=== PATIENT | female | born 1950 | race Caucasian/White ===

== ENCOUNTER → 2016-06-09 | Outpatient (CLI) | payer MEDICARE, OTHER | LOC: GMAB 10:08 | PROVIDERS: ATTEND Family Medicine | DX: E03.9 Hypothyroidism, unspecified (principal) ==

== ENCOUNTER → 2016-11-26 | Outpatient (CLI) | payer MEDICARE, OTHER | LOC: GMAB 13:11 | PROVIDERS: ATTEND Family Medicine | DX: R30.0 Dysuria (principal); E87.6 Hypokalemia ==

== ENCOUNTER → 2017-02-17 | Outpatient (CLI) | payer MEDICARE, OTHER ==
--- NOTE | 2017-02-19 17:18 | CT ---
EXAM DESCRIPTION: CTA Chest CLINICAL HISTORY: PE COMPARISON: None. TECHNIQUE: Axial CT images of the chest were acquired after the administration of intravenous contrast. Coronal and sagittal reconstructions were obtained. This exam was performed according to our departmental dose-optimization program which includes use of Automated Exposure Control, adjustment of the mA and/or kV according to patient size and/or use of iterative reconstruction technique. FINDINGS: Neck base: Unremarkable. Mediastinum: Unremarkable Lymph Nodes: No lymphadenopathy. Heart and pericardium: Normal heart size. No pericardial effusion. Aorta: No aneurysm or dissection Pulmonary Artery: No pulmonary embolism Central Airways: Patent. Pleura: No pneumothorax or pleural effusion. Lungs: Small subpleural nodules are scattered throughout the right upper lobe and right middle lobe, for example right middle lobe image 93 series 301 and right upper lobe image 54. 4 mm subsolid nodule left upper lobe image 35. Small subpleural pulmonary nodules within the left upper lobe, for example image 24. Upper abdomen: Unremarkable. Bones and soft tissues: No acute osseous or soft tissue abnormalities. IMPRESSION: No pulmonary embolism. Bilateral pulmonary nodules measuring less than 6 mm. Per Fleischner guidelines, if low risk no further follow-up is required. If high risk consider follow-up chest CT in 12 months. Electronically signed by: Nabeel Umana MD 02/19/2017 5:17 PM CDT
== END ==
LOC: FT 08:00
PROVIDERS: ATTEND Internal Medicine Interventional Cardiology
DX: R06.09 Other forms of dyspnea (principal); R91.1 Solitary pulmonary nodule

== ENCOUNTER → 2017-04-29 | Outpatient (CLI) | payer MEDICARE, OTHER | LOC: GMAB 12:49 | PROVIDERS: ATTEND Family Medicine | DX: R30.0 Dysuria (principal) ==

== ENCOUNTER → 2017-08-17 | Outpatient (CLI) | payer MEDICARE, OTHER | END | disposition home or self-care (01) | LOC: GMAB 10:17 | PROVIDERS: ATTEND Family Medicine | DX: E03.9 Hypothyroidism, unspecified (principal) ==

== ENCOUNTER → 2017-11-24 | Outpatient (CLI) | payer MEDICARE, OTHER | LOC: GMAJS 15:04 | PROVIDERS: ATTEND Physician Assistant | DX: R30.0 Dysuria (principal) ==

== ENCOUNTER → 2018-08-31 | Outpatient (CLI) | payer MEDICARE, OTHER ==
[~2018-08-31] MED LIST: ALBUTEROL SULFATE 2.5 MG/3 ML VIAL NEB ONE
== END ==
LOC: RESP 10:25
PROVIDERS: ATTEND Family Medicine
DX: R06.02 Shortness of breath (principal)
CPT/HCPCS: 94060; J7611

== ENCOUNTER 2018-10-12 23:05 | Emergency (ER) | payer MEDICARE, OTHER ==
--- NOTE | 2018-10-12 23:26 | ED.PDOC ---
History of Present Illness - General Chief Complaint: Cardiovascular Problem Stated Complaint: burnig chest, dizzy Time Seen by Provider: 10/12/18 23:22 Source: patient, family Exam Limitations: no limitations - History of Present Illness Initial Comments: patient comes in today for sudden onset of burning chest pain. Patient was about to go to bed and was walking to bed when suddenly she became diaphoretic, had a severe episode of dizziness where the entire room was spinning, and suffered severe burning chest pain substernal area. Patient states only lasted for a couple minutes and has since resolved. Patient currently has no dizziness but when her daughter took her blood pressure was extremely elevated. Patient with past medical history significant for hypothyroidism and hypertension. Patient's never had any heart problems or suffered any angina. She's never had episodes of vertigo in the past. She's had no loss of consciousness, altered LOC, slurring of words, or change sensation to her upper or lower extremities. Prior to tonight she was in her normal usual health and has had no fever, chills, cough or cold symptoms. Timing/Duration: 1/2 hour, resolved prior to arrival Severity/Quality: severe, burning Location: substernal Chest Pain Radiation: no radiation Activities at Onset: rest Prior Chest Pain/Cardiac Workup: no prior chest pain, no prior cardiac workup Improving Factors: other - resolved spontaneously Worsening Factors: nothing Nitro Today/Relief: no nitro taken today Aspirin Treatment Today: 81 mg x 1, provided at home Associated Symptoms: dizziness, nausea/vomiting, weakness Allergies/Adverse Reactions: Allergies Penicillins Allergy (Verified 10/12/18 23:20) Home Medications: Ambulatory Orders Amlodipine Besylate 5 mg PO DAILY 10/12/18 Aspirin [Aspirin Childrens] 81 mg PO DAILY 10/12/18 Denosumab [Prolia] 60 mg SC 10/12/18 Hydrochlorothiazide 25 mg PO PRN 10/12/18 Levothyroxine Sodium 75 mcg PO DAILY 10/12/18 Losartan Potassium 100 mg PO DAILY 10/12/18 Magnesium 250 mg PO DAILY 10/12/18 Multiple Vitamins W/ Minerals [Hair/Skin/Nails] 2 tab PO DAILY 10/12/18 Multiple Vitamins W/ Minerals [Osteoprime Plus/Calcium &] 4 tab PO DAILY 10/12/18 Potassium Chloride [K-Tab] 10 meq PO TID 10/12/18 Sertraline HCl 25 mg PO DAILY 10/12/18 Review of Systems - Review of Systems Constitutional: States: diaphoresis, weakness EENTM: States: no symptoms reported. Denies: blurred vision, double vision, ear discharge, nose congestion, throat pain Respiratory: States: no symptoms reported. Denies: cough, short of breath, wheezing Cardiology: States: see HPI, chest pain Gastrointestinal/Abdominal: States: no symptoms reported. Denies: abdominal pain, diarrhea, nausea, vomiting Neurological: States: see HPI Family Medical History - Family History Mother Family History: Unknown Living Status: Unknown Physical Exam - Physical Exam General Appearance: Alert, Comfortable, No apparent distress Eyes, Ears, Nose, Throat Exam: PERRL/EOMI, normal ENT inspection, TMs normal, pharynx normal Neck: non-tender, full range of motion, supple, normal inspection Respiratory: chest non-tender, lungs clear, normal breath sounds, no respiratory distress Cardiovascular/Chest: normal peripheral pulses, regular rate, rhythm, no edema, no gallop, no JVD, no murmur Peripheral Pulses: radial,right: 2+, radial,left: 2+ Gastrointestinal/Abdominal: normal bowel sounds, non tender, soft Neurologic: parts and service manager II-XII nml as tested, no motor/sensory deficits, alert, oriented x 3, other - no deficit, no drift, normal motor, normal speech Skin Exam: normal color Progress - Results/Orders Results/Orders: 10/12/18 23:30 EKG STAT 10/13/18 01:50 CARDIAC ENZYME GROUP Stat 10/13/18 02:00 EKG STAT Laboratory Results WBC 11.5 K/mm3 (4.8-10.8) H 10/12/18 23:00 RBC 4.91 M/mm3 (4.20-5.40) 10/12/18 23:00 Hgb 12.5 gm/dL (12.0-16.0) 10/12/18 23:00 Hct 39.0 % (36.0-47.0) 10/12/18 23:00 MCV 79.4 fl (81.0-99.0) L 10/12/18 23:00 MCH 25.5 pg (27.0-31.0) L 10/12/18 23:00 MCHC 32.1 g/dL (33.0-37.0) L 10/12/18 23:00 RDW 15.1 % (11.5-14.5) H 10/12/18 23:00 Plt Count 284 K/mm3 (130-400) 10/12/18 23:00 MPV 8.8 fl (7.40-10.4) 10/12/18 23:00 Absolute Neuts (auto) 4.60 K/uL (1.8-6.8) 10/12/18 23:00 Absolute Lymphs (auto) 5.40 K/uL (1.0-3.4) H 10/12/18 23:00 Absolute Monos (auto) 1.00 K/uL (0.2-0.8) H 10/12/18 23:00 Absolute Eos (auto) 0.40 K/uL (0.0-0.4) 10/12/18 23:00 Absolute Basos (auto) 0.10 K/uL (0.0-0.1) 10/12/18 23:00 Neutrophils % 39.9 % (42.0-78.0) L 10/12/18 23:00 Lymphocytes % 46.5 % (20.0-50.0) 10/12/18 23:00 Monocytes % 8.7 % (2.0-9.0) 10/12/18 23:00 Eosinophils % 3.8 % (1.0-5.0) 10/12/18 23:00 Basophils % 1.1 % (0.0-2.0) 10/12/18 23:00 Sodium 135 mmol/L (135-145) 10/12/18 23:00 Potassium 3.2 mmol/L (3.6-5.0) L 10/12/18 23:00 Chloride 102 mmol/L (101-111) 10/12/18 23:00 Carbon Dioxide 23 mmol/L (21-31) 10/12/18 23:00 Anion Gap 13.2 (12-18) 10/12/18 23:00 BUN 29 mg/dL (7-18) H 10/12/18 23:00 Creatinine 0.99 mg/dL (0.6-1.3) 10/12/18 23:00 BUN/Creatinine Ratio 29.3 (10-20) H 10/12/18 23:00 Random Glucose 103 mg/dL (70-105) 10/12/18 23:00 Serum Osmolality 276.2 mOsm/L (275-295) 10/12/18 23:00 Calcium 9.8 mg/dL (8.4-10.2) 10/12/18 23:00 Total Bilirubin < 0.2 mg/dL (0.2-1.0) L 10/12/18 23:00 AST 23 IU/L (10-42) 10/12/18 23:00 ALT 15 IU/L (10-60) 10/12/18 23:00 Alkaline Phosphatase 67 IU/L (42-121) 10/12/18 23:00 Creatine Kinase 49 IU/L (26-140) 10/13/18 01:50 CK-MB (CK-2) 2.2 ng/mL (0.0-4.4) 10/12/18 23:00 CK-MB (CK-2) % Not Reportable 10/12/18 23:00 Troponin I < 0.02 ng/mL (0.01-0.05) 10/13/18 01:50 Serum Total Protein 7.1 gm/dL (6.4-8.2) 10/12/18 23:00 Albumin 3.6 g/dl (3.2-5.5) 10/12/18 23:00 Globulin 3.5 gm/dL (2.3-3.5) 10/12/18 23:00 Albumin/Globulin Ratio 1.0 (1.1-1.9) L 10/12/18 23:00 Amylase 55 U/L (28-100) 10/12/18 23:00 Lipase 39 U/L (22-51) 10/12/18 23:00 repeat EKG show no acute changes - EKG/XRAY/CT EKG: Sinus, no ST T wave changes Comments: HR 65, normal ECG, normal axis Departure - Departure Clinical Impression: Vertigo Disposition: Discharge to Home or Self Care Condition: Fair Departure Forms: ED Discharge - Pt. Copy, Patient Portal Self Enrollment Instructions: DI for Chest Pain Referrals: Mert Ferguson MD [Family Provider] - 1-2 Weeks Home Medications: Ambulatory Orders Amlodipine Besylate 5 mg PO DAILY 10/12/18 Aspirin [Aspirin Childrens] 81 mg PO DAILY 10/12/18 Denosumab [Prolia] 60 mg SC 10/12/18 Hydrochlorothiazide 25 mg PO PRN 10/12/18 Levothyroxine Sodium 75 mcg PO DAILY 10/12/18 Losartan Potassium 100 mg PO DAILY 10/12/18 Magnesium 250 mg PO DAILY 10/12/18 Multiple Vitamins W/ Minerals [Hair/Skin/Nails] 2 tab PO DAILY 10/12/18 Multiple Vitamins W/ Minerals [Osteoprime Plus/Calcium &] 4 tab PO DAILY 10/12/18 Potassium Chloride [K-Tab] 10 meq PO TID 10/12/18 Sertraline HCl 25 mg PO DAILY 10/12/18 Additional Instructions: return to ER for chest pain, intractable emesis or vertigo. Follow up with PCP in 3-4 days
[2018-10-12 23:36] VITALS: TEMP 97.1; O2SAT 98
[2018-10-13] MEDS: MECLIZINE HCL 12.5 MG TAB PO ONE (00:01)
[2018-10-13 02:27] VITALS: BP 141/71
== END 2018-10-13 02:27 | disposition home or self-care (01) ==
LOC: ER 23:05
DX: R42 Dizziness and giddiness (principal); R07.2 Precordial pain; E03.9 Hypothyroidism, unspecified; I10 Essential (primary) hypertension; Z79.82 Long term (current) use of aspirin; Z79.899 Other long term (current) drug therapy; Z88.0 Allergy status to penicillin

== ENCOUNTER → 2019-03-05 | Outpatient (CLI) | payer MEDICARE, OTHER | LOC: GMAE 11:46 | PROVIDERS: ATTEND Family Medicine | DX: E03.9 Hypothyroidism, unspecified (principal); E78.2 Mixed hyperlipidemia ==

== ENCOUNTER → 2019-10-15 | Outpatient (CLI) | payer MEDICARE, OTHER | LOC: GMAE 14:23 | PROVIDERS: ATTEND Family Medicine | DX: R19.7 Diarrhea, unspecified (principal); E03.9 Hypothyroidism, unspecified; I10 Essential (primary) hypertension ==

== ENCOUNTER → 2019-11-23 | Outpatient (CLI) | payer MEDICARE, OTHER ==
--- NOTE | 2019-11-23 16:17 | US ---
EXAM DESCRIPTION: Renal: Ultrasound. CLINICAL HISTORY: 69 years Female CHRONIC KIDNEY DISEASE STAGE 4 COMPARISON: None TECHNIQUE: Transcutaneous scanning: Two-dimensional and Doppler modes. FINDINGS: Right kidney measures 9.8 x 3.8 x 5.1 cm; volume 98.8 ml. Mid-renal cortical thickness 13 . Cortical echogenicity equal to the liver. No hydronephrosis No echogenic stones. Lobular contour of the kidney with no perinephric fluid. 9 mm cortical cyst. Normal vascularity. Proximal ureter not visualized.. Left kidney measures 10.4 x 4.0 x 5.0 cm; volume 107.6 ml. Mid-renal cortical thickness 13 mm.. Normal cortical echogenicity. No hydronephrosis. No echogenic stones. 8.3 mm cortical cyst. Lobulated contour of the kidney with no perinephric fluid. Normal vascularity.. Proximal ureter not visualized.. Urinary bladder was visualized. Bladder volume 11.6 mL. Ureteral jet in the bladder not seen by Doppler. Patient could not void. Abdominal aorta: Normal caliber of from the proximal segment to the distal bifurcation. IMPRESSION: Medical renal disease suspected bilaterally, more on the right. No echogenic stones or hydronephrosis. No perirenal fluid. Urinary bladder was not well distended. Electronically signed by: Alex Figueroa MD 11/23/2019 4:15 PM CDT
== END ==
LOC: LAB.O 09:28
PROVIDERS: ATTEND Internal Medicine Nephrology
DX: N18.4 Chronic kidney disease, stage 4 (severe) (principal)